=== PATIENT | male | born 1945 | race Caucasian/White ===

== ENCOUNTER 2020-09-19 13:38 | Emergency (ER) | payer MEDICARE ==
[~2020-09-19 13:38] MED LIST: AMBIEN CR6.25 MG PO; ASPIR 8181 MG PO; FISH OIL 1,0001 EAC1 PO; LIPITOR40 MG PO; MULTI-DAY VITA1 EACH PO; PERCOCET 10-321 EACH PO; XARELTO10 MG PO
[2020-09-19] MEDS ORDERED: HYDROCODON-ACE1 EAC4 PO (16:13)
== END 2020-09-19 16:20 | disposition home or self-care (01) ==
LOC: ER1 13:38
DX: S43.142A Inferior dislocation of left acromioclavicular joint, initial encounter (principal); E78.5 Hyperlipidemia, unspecified; W01.0XXA Fall on same level from slipping, tripping and stumbling without subsequent striking against object, initial encounter; Y92.009 Unspecified place in unspecified non-institutional (private) residence as the place of occurrence of the external cause
CPT/HCPCS: 73030; 99283

== ENCOUNTER → 2021-09-27 | Day surgery (SDC) | payer MEDICARE ==
[~2021-09-27] MED LIST changes: +HYDROCODON-ACE1 EAC4 PO; +LOSARTAN POTASS25 MG PO; +MULTI-VITAMIN1 EACH PO
== END | disposition home or self-care (01) ==
LOC: OR 05:25
PROVIDERS: Surgery
PROC: 0DBN8ZX Excision of Sigmoid Colon, Via Natural or Artificial Opening Endoscopic, Diagnostic (ICD-10-PCS; 2021-09-27)
PROC: 0DBG8ZZ Excision of Left Large Intestine, Via Natural or Artificial Opening Endoscopic (ICD-10-PCS; principal; 2021-09-27 07:30)
DX: D12.6 Benign neoplasm of colon, unspecified (principal); Z20.822 Contact with and (suspected) exposure to COVID-19; K51.40 Inflammatory polyps of colon without complications; N40.0 Benign prostatic hyperplasia without lower urinary tract symptoms; I10 Essential (primary) hypertension; E78.5 Hyperlipidemia, unspecified; F17.290 Nicotine dependence, other tobacco product, uncomplicated; Z79.82 Long term (current) use of aspirin; Z79.899 Other long term (current) drug therapy
CPT/HCPCS: J2704; J7120